=== PATIENT | female | born 1945 | race Caucasian/White ===

== ENCOUNTER 2021-02-14 12:19 | Emergency (ER) | payer OTHER ==
[~2021-02-14] VITALS: Ht 149.9 cm; Wt 54.9 kg
== END 2021-02-14 16:38 ==
LOC: ER 12:19
DX: H92.01 Otalgia, right ear (principal); H60.8X1 Other otitis externa, right ear

== ENCOUNTER 2021-02-19 15:15 | Outpatient (CLI) | payer OTHER | END 2021-02-19 16:03 | disposition home or self-care (01) | LOC: OFIC 805 15:15 | PROVIDERS: ATTEND Otolaryngology Otology & Neurotology | DX: H60.8X1 Other otitis externa, right ear (principal); H61.21 Impacted cerumen, right ear ==

== ENCOUNTER 2021-03-05 13:35 | Outpatient (CLI) | payer OTHER | END 2021-03-05 14:21 | disposition home or self-care (01) | LOC: OFIC 805 13:35 | PROVIDERS: ATTEND Otolaryngology Otology & Neurotology | DX: H60.8X1 Other otitis externa, right ear (principal); H61.21 Impacted cerumen, right ear ==

== ENCOUNTER 2021-04-03 13:27 | Outpatient (CLI) | payer OTHER | END 2021-04-03 14:46 | disposition home or self-care (01) | LOC: OFIC 805 13:27 | PROVIDERS: ATTEND Otolaryngology Otology & Neurotology | DX: H60.8X1 Other otitis externa, right ear (principal); H61.21 Impacted cerumen, right ear; B37.84 Candidal otitis externa ==

== ENCOUNTER 2021-04-16 12:48 | Outpatient (CLI) | payer OTHER | END 2021-04-16 15:37 | disposition home or self-care (01) | LOC: OFIC 805 12:48 | PROVIDERS: ATTEND Otolaryngology Otology & Neurotology | DX: H60.8X1 Other otitis externa, right ear (principal); H61.21 Impacted cerumen, right ear; B37.84 Candidal otitis externa ==